=== PATIENT | male | born 1970 | race Caucasian/White ===

== ENCOUNTER 2021-08-21 19:18 | Emergency (ER) | payer OTHER, SELFPAY ==
[2021-08-21 19:24] VITALS: BP 149/92; PULSE 86; RESP 18; TEMP 36.5; O2SAT 98
--- NOTE | 2021-08-21 20:53 | ED.GENADUL_ITS ---
Discharge Plan Disposition Patient Disposition: HOME Condition: Improving Discharge Details Clinical Impression: Eye irritation Primary Care Provider: Alma Rosa,Local ED Provider: Jass Chen Home Meds and New Rx's Prescriptions: No Action No Known Home Meds 0RF Discharge Instructions Additional Instructions: Erythromycin eye ointment as directed. Warm compresses every 2 hours for 20 minutes. Please watch for new or worsening symptoms and return to the ER for any concerns. Otherwise follow-up with your primary care provider if symptoms are persisting over the next 3-5 days. Stand Alone Forms: Work Release Discharge Data Discharge Date/Time-TO BE ENTERED AT DEPARTURE: 08/21/21 21:34 Medical Decision Making 51-year-old gentleman presents believing he got dust or debris in his left eye at work a few hours ago, requires a work note to return to work. He states that happened suddenly. Denies any real pain, visual changes, he does appear to have a small stye to his upper medial left lid. Fluorescein staining reveals no foreign body. Given this happened while he was working and he felt something go into his eye, certainly the stye it may be an incidental finding. The eye was flushed with saline and then again using fluorescein to examine, no uptake. Will treat with erythromycin eye ointment, warm compresses, and outpatient follow-up. Patient comfortable this plan and has no additional questions or concerns. Denies any visual changes or discharge from his eye Standard discharge and return precautions were provided. Patient understands, is agreeable to this plan, and has no additional questions or concerns upon discharge. This documentation was generated using [employer] dictation system, please disregard any oddities of phrase or misspellings. HPI General Mode of arrival: ambulatory . Date/Time Provider Initiated Documentation: 08/21/21 19:27 . Limitations to Documentation: no limitations . Information obtained by: patient . History of Present Illness 51 year old M presents to the emergency department with the chief complaint of l eye pain, described as mild, with intensity rated at 3. Quality is described as other (Irritation), and is localized to the eyes and left. Patient reports no radiation. Patient started experiencing this hour(s) (4) and it has been constant. improves with No relieving factors improve symptom(s), No exacerbating factors reported . Patient notes no other symptoms.. Patient did receive the following treatments prior to arrival, other (Flushes his eye) Related Data Home Medications Medication Instructions Recorded Confirmed Unknown [No Known Home Meds] 08/21/21 08/21/21 Allergies Allergy/AdvReac Type Severity Reaction Status Date / Time No Known Allergies Allergy Unverified 08/21/21 20:34 General Stated Complaint: EyeProblem HARIS: 4 Review of Systems Constitutional Constitutional: Denies fever(s) and Denies headache(s) Eyes Eyes: Denies change in vision, Denies eye discharge, Reports irritation, Denies requires corrective lenses and Denies photophobia ENT Ears, Nose, Mouth, and Throat: Denies headache(s) and Denies neck pain Musculoskeletal Musculoskeletal: Denies neck pain Neurologic Neurologic: Denies headache(s) PFSH All Active Problems Eye irritation (Acute) Social History Smoking/Tobacco Use Status: Current every day Tobacco Type: cigarettes Smoking risk assessment performed?: Yes Alcohol Intake: never Drug use: Never Substance use type: does not use Do you feel safe at home: Yes Do you feel safe in your relationship?: Yes Exam Const General: cooperative, healthy appearing, comfortable and no acute distress Orientation: alert and awake HENCT Head: normal to inspection, normocephalic and atraumatic Face and sinus: normal facial exam Mouth: moist mucous membranes Eyes Alignment and Position: alignment normal Periorbital: periorbital findings normal Eyelids: eyelid abnormality left upper eyelid inflamed cyst external lid Conjunctivae: conjunctival abnormality left conjunctival injection Sclera: sclerae normal Cornea: corneas normal and fluorescein used Pupils: PERRL EOM: EOM intact bilaterally Direct ophthalmoscopy: normal light reflex Neck Neck: normal visual inspection, full ROM, trachea midline and supple Resp Effort & Inspection: normal respiratory effort and able to speak in complete sentences Cardio Rate: regular rate Rhythm: regular rhythm Skin General skin exam: no rashes or lesions noted Neuro General: patient alert, patient awake, moves all extremities and no focal motor deficits Sensory Exam: no sensory deficits noted Psych Appearance: grossly normal Mental Status: mental status grossly normal Course Vital Signs Vital signs: Vital Signs Temperature 36.5 C 08/21/21 19:24 Pulse 86 08/21/21 19:24 Respiratory Rate 18 08/21/21 19:24 Blood Pressure 149/92 H 08/21/21 19:24 Pulse Oximetry 98 08/21/21 19:24 Temperature 36.5 C 08/21/21 19:24 Temperature Source Tympanic 08/21/21 19:24 Pulse 86 08/21/21 19:24 Respiratory Rate 18 08/21/21 19:24 Respiratory Effort 08/21/21 19:27 Blood Pressure 149/92 H 08/21/21 19:24 Blood Pressure Position Supine 08/21/21 19:24 Pulse Oximetry 98 08/21/21 19:24 Oxygen Delivery Method Room Air 08/21/21 19:24 Oxygen Flow Rate 0 08/21/21 19:24 Pain Level 5 08/21/21 19:24
[2021-08-21] MEDS: Fluorescein STRIPS 100/BOX 1 MG (21:12)
[2021-08-21] MEDS: Tetracaine 0.5% 4 ML BTL (21:12)
[2021-08-21] MEDS: Erythromycin Ophth Oint 3.5 GM TUBE OD (21:34)
== END 2021-08-21 21:34 | disposition home or self-care (01) ==
LOC: ER 21:39
PROVIDERS: Emergency Provider Physician Assistant
DX: H53.142 Visual discomfort, left eye (principal); T15.82XA Foreign body in other and multiple parts of external eye, left eye, initial encounter; X58.XXXA Exposure to other specified factors, initial encounter; Y99.0 Civilian activity done for income or pay
CPT/HCPCS: 99283

== ENCOUNTER 2021-10-21 00:31 | Emergency (ER) | payer OTHER, SELFPAY ==
--- NOTE | 2021-10-21 00:30 | DI.CT_ITS ---
Exam(s) CT ABDOMEN PELVIS WO EXAM: CT ABDOMEN PELVIS WO CLINICAL HISTORY: llq pain. TECHNIQUE: Imaging Protocol: Axial computed tomography images with coronal and sagittal reformatted images were created and reviewed. Oral: no COMPARISON: No exams were available for comparison FINDINGS: ABDOMEN: Lung Bases: Normal where visualized. Liver: Normal density. No measurable mass. Gallbladder and biliary tract: No radiodense calculus or dilation. Pancreas: Normal density, no abnormal calcifications or inflammatory process. Spleen: Normal. Kidneys: Normal size, contour and axis. Left kidney shows mild hydronephrosis secondary to a 7 ziggy meter stone in the proximal 3rd of the ureter. There is is mild perinephric stranding. Punctate non obstructing stone lower pole right kidney. Cyst upper pole right kidney. Adrenal glands: No masses seen. Lymph nodes: Within normal limits. Abdominal Aorta: Abdominal portion non-dilated. PELVIS: Bladder: Nearly empty, not well evaluated. Bowel: Sigmoid diverticulosis. No obstruction or bowel wall thickening. Peritoneal cavity: No ascites, collection or mesenteric inflammatory response. Reproductive organs: Within normal limits. Bones: Unremarkable for age. IMPRESSION: Mild left hydronephrosis secondary to a 7 millimeter stone in the upper left ureter. RADIATION DOSE DELIVERED: 973.14mGy.cm Total DLP DATA REPOSITORY: All CT scans at this facility are submitted to the National Radiology Data Registry (NRDR) Dose Index Registry (DIR) with the [employer] (ACR). RADIATION OPTIMIZATION: All CT scans at this facility use at least one of these dose optimization te chniques: automated exposure control; mA and/or kV adjustment per patient size (includes targeted exa ms where dose is matched to clinical indication); or iterative reconstruction.
[2021-10-21 00:37] VITALS: BP 159/133; PULSE 91; RESP 98; TEMP 37.1
--- NOTE | 2021-10-21 00:48 | ED.GENADUL_ITS ---
Discharge Plan Disposition Patient Disposition: HOME Condition: Stable Discharge Details Clinical Impression: Kidney stone Primary Care Provider: Alma RosaLocal ED Provider: Regino Dong Home Meds and New Rx's Prescriptions: New ondansetron 4 mg tablet,disintegrating 4 mg PO Q8H PRN (Reason: nausea and vomiting) Qty: 30 0RF tamsulosin [Flomax] 0.4 mg capsule 0.4 mg PO DAILY Qty: 14 0RF Rx Instructions: take once daily for 14 days of until you pass kidney stone oxycodone 5 mg tablet 5 mg PO Q6H PRNQty: 9 0RF Discharge Instructions Instructions: Kidney Stones (ED) Additional Instructions: you should be contacted with an appointment for urology you can take 1000mg tylenol and 600mg ibuprofen every 6 hours for pain. Do not exceed 3000mg of tylenol in a 24 hour period. If you need additional pain relief take 1 oxycodone, do not drink alcohol or drive if you take this medicine if you develop severe worsening pain, fevers or persistent vomiting return to the emergency department Referrals: Jude Duran MD [ [facility] STAFF PHYSICIAN] - Medical Decision Making 51 yo male who denies chronic medical problems though states he doesn't go to a pcp routinely comes in with cc of left lower abdomen pain and n/v since 0300 yesterday morning. He denies having pain like this in the past, did have his appendix taken out years ago per patient. He denies chest pain, dyspnea, fevers, chills. He has no testicle pain or swelling. He denies alcohol or drug use. He has tenderness on exam in the llq no distention or tenderness elsewhere. Suspect diverticulitis based on location, will obtain labs including cbc, cmp, lipase and obtain ct to further evaluate. labs show wbc of 17 which could be reactive from the n/v and pain. Still waiting for vrad report but on my read has proximal left kidney stone. Pain is much better and he is now comfortable. Ua shows no evidence of infection but does have hematuria. Will monitor while vrad report is still pending ct confirms kidney stone, 5mm in mid left ureter. Pt resting in bed without pain and feels comfortable with d/c and f/u with urology. Placed on f/u list to see urology angelina. Return precautions given Differential Diagnosis Differential Diagnosis: diverticulitis, sbo, colitis Imaging Data Radiologic Study: Attestation: I personally reviewed and interpreted this imaging study as follows: Imaging: CT Scan Radiologist's impression: IMPRESSION: 1. There is a 5 mm stone within the mid left ureter, with proximal mild left-sided hydronephrosis and hydroureter. 2. Nonobstructive nephrolithiasis on the right. Lab Data Lab results reviewed: Yes I reviewed the patient's lab results. HPI General Mode of arrival: ambulatory . Date/Time Provider Initiated Documentation: 10/21/21 00:34 . Limitations to Documentation: no limitations . Information obtained by: patient . History of Present Illness 51 year old M presents to the emergency department with the chief complaint of abdominal pain, described as moderate, Quality is described as stabbing, and is localized to the abdomen. Patient reports no radiation. Patient started experiencing this day(s) (1) and it has been constant. No relieving factors improve symptom(s), No exacerbating factors reported . Patient notes no other symptoms.. Patient did receive the following treatments prior to arrival, none Related Data Home Medications Medication Instructions Recorded Confirmed ondansetron 4 mg disintegrating 4 mg PO Q8H PRN nausea and 10/21/21 tablet vomiting #30 tabs oxycodone 5 mg tablet 5 mg PO Q6H PRN #9 tabs 10/21/21 tamsulosin 0.4 mg capsule (Flomax) 0.4 mg PO DAILY #14 caps 10/21/21 Previous Rx's Medication Instructions Recorded ondansetron 4 mg disintegrating 4 mg PO Q8H PRN nausea and 10/21/21 tablet vomiting #30 tabs oxycodone 5 mg tablet 5 mg PO Q6H PRN #9 tabs 10/21/21 tamsulosin 0.4 mg capsule (Flomax) 0.4 mg PO DAILY #14 caps 10/21/21 Allergies Allergy/AdvReac Type Severity Reaction Status Date / Time No Known Allergies Allergy Unverified 10/21/21 00:42 General Stated Complaint: Abd Prob HARIS: 3 Review of Systems All systems reviewed & are unremarkable except as noted in HPI and below Constitutional Constitutional: Denies chills, Denies fever(s) and Denies weakness Eyes Eyes: Denies loss of vision Cardiovascular Cardiovascular: Denies chest pain and Denies dyspnea Respiratory Respiratory: Denies cough and Denies dyspnea Genitourinary Genitourinary: Denies dysuria Neurologic Neurologic: Denies loss of vision and Denies weakness PFSH All Active Problems (Updated 10/21/21 @ 02:45 by Regino Dong MD) Kidney stone (Chronic) Social History Smoking/Tobacco Use Status: Current every day Tobacco Type: cigarettes Smoking risk assessment performed?: Yes Alcohol Intake: never Drug use: Never Substance use type: does not use Do you feel safe at home: Yes Do you feel safe in your relationship?: Yes Exam Const General: no acute distress Orientation: alert HENMT Head: normal to inspection Ears: external ears normal General nose exam: external nose normal Mouth: moist mucous membranes Eyes General: appearance normal, both eyes and all related structures Neck Neck: normal visual inspection Resp Effort & Inspection: normal respiratory effort and able to speak in complete sentences Cardio Rate: regular rate GI Palpation: soft and tender Skin General skin exam: no rashes or lesions noted Neuro General: patient alert and patient oriented x3 Extrem General: normal to inspection Psych Mental Status: mental status grossly normal Course Vital Signs Vital signs: Vital Signs Temperature 37.1 C 10/21/21 00:37 Pulse 91 H 10/21/21 00:37 Respiratory Rate 98 H 10/21/21 00:37 Blood Pressure 159/133 H 10/21/21 00:37 Temperature 37.1 C 10/21/21 00:37 Temperature Source Temporal Artery Scan 10/21/21 00:37 Pulse 91 H 10/21/21 00:37 Respiratory Rate 98 H 10/21/21 00:37 Respiratory Effort Non-Labored 10/21/21 00:40 Blood Pressure 159/133 H 10/21/21 00:37 Blood Pressure Position Supine 10/21/21 00:37 Oxygen Delivery Method Room Air 10/21/21 00:37 Oxygen Flow Rate 0 10/21/21 00:37 Pain Level 10 10/21/21 00:37
[2021-10-21 00:49] LABS: Abs Immature Grans 0.07 10^3/uL (0.0-0.06); Absolute Eosinophil Count 0.07 10^3/uL (0.0-0.7); Absolute Monocyte Count 1.45 10^3/uL (0.1-0.8); Basophils % 0.3; Eosinophils % 0.4; HCT 48.7 % (40.0-50.0); HGB 16.2 g/dL (13.5-17.5); Immature Grans % 0.4; Lymphocytes % 12.2; MCH 30.5 pg (27.0-33.0); MCHC 33.3 % (32.0-36.0); MCV 92 fL (80-95); MPV 11.4 fL (8.0-11.0); Monocytes % 8.3; Neutrophils % 78.4; Platelet Count 256 10^3/uL (130-400); RBC 5.31 10^6/uL (4.36-5.78); RDW 13.8 % (11.8-14.1); RDW-SD 46.5 fL; WBC 17.41 10^3/uL (4.4-10.8)
[2021-10-21 00:50] LABS: Absolute Basophil Count 0.05 10^3/uL (0.0-0.2); Absolute Lymphocyte Count 2.12 10^3/uL (1.2-3.4); Absolute Neutrophil Count 13.65 10^3/uL (1.2-6.7)
[2021-10-21] MEDS: Normal Saline 1,000 ML 1000 ML IV (00:53)
[2021-10-21] MEDS: Ondansetron 4 MG/2 ML VIAL IVP (00:53)
[2021-10-21] MEDS: Ketorolac 15 MG/ML VIAL IVP (00:53)
[2021-10-21 01:02] LABS: ALT 27 U/L (16-63); AST 11 U/L (15-37); Albumin 4.2 g/dL (3.4-5.0); Alkaline Phosphatase 70 U/L (46-116); Anion Gap 13.8 mmol/L (3-11); BUN 21 mg/dL (7-18); Bilirubin, Total 0.3 mg/dL (0.2-1.0); CO2 20.2 mmol/L (21.0-32.0); CREATININE 1.6 mg/dL (0.70-1.30); Chloride 104 mmol/L (98-107); Estimated GFR 45.62 (mL/min/1.73m2); Glucose 108 mg/dL (74-106); Magnesium 2.1 mg/dL (1.8-2.4); Potassium 4.3 mmol/L (3.5-5.1); Sodium 138 mmol/L (136-145)
[2021-10-21 01:03] LABS: Bilirubin, Direct 0.1 mg/dL (0.0-0.2); Bilirubin, Total 0.3 mg/dL (0.2-1.0); Lipase 105 U/L (73-393)
[2021-10-21 01:22] LABS: Bilirubin Moderate (Negative); Blood Large (Negative); Clarity Clear (Clear); Glucose Negative (Negative); Ketones 40 mg/dL (Negative); Leukocyte Esterase Negative (Negative); Nitrite Negative (Negative); Specific Gravity >= 1.030 (1.005-1.025); Urobilinogen 0.2 EU/dL (Up TO 0.2); pH 5.5 (5-8)
[2021-10-21 01:25] LABS: Bacteria Few HPF (Negative); C & S Indicated? No; Casts Negative LPF (Negative); Crystals Few Calcium Oxalate HPF (Negative); Epithelial Cells Rare HPF (Negative); Mucus Negative (Negative); RBC >50 HPF (0-2); WBC Negative HPF (0-5)
[2021-10-21] MEDS: HYDROmorphone 2 MG/ML VIAL 1 MG IVP (01:36)
--- NOTE | 2021-10-21 01:58 | NUR.NOTE ---
Needs a PCP, put on care manger's list for f/u.Nursing Note:
--- NOTE | 2021-10-21 02:38 | DI.VRAD_ITS ---
PROCEDURE INFORMATION: Exam: CT Abdomen And Pelvis Without Contrast Exam date and time: 10/21/2021 1:17 AM Age: 51 years old Clinical indication: Abdominal pain; Localized; Left lower quadrant (llq); Prior surgery; Surgery date: 6+ months; Surgery type: Appendectomy; Additional info: Llq pain TECHNIQUE: Imaging protocol: Computed tomography of the abdomen and pelvis without contrast. Radiation optimization: All CT scans at this facility use at least one of these dose optimization techniques: automated exposure control; mA and/or kV adjustment per patient size (includes targeted exams where dose is matched to clinical indication); or iterative reconstruction. COMPARISON: No relevant prior studies available. FINDINGS: Liver: Normal. No mass. Gallbladder and bile ducts: Normal. No calcified stones. No ductal dilation. Pancreas: Normal. No ductal dilation. Spleen: Normal. No splenomegaly. Adrenal glands: Normal. No mass. Kidneys and ureters: There is a 5 mm stone within the mid left ureter, with proximal mild left-sided hydronephrosis and hydroureter. A right simple renal cyst is noted emanating from the superior pole, measuring 6.0 cm. Nonobstructive nephrolithiasis on the right. Stomach and bowel: Unremarkable. No obstruction. No mucosal thickening. Appendix: The appendix is surgically absent. Intraperitoneal space: Unremarkable. No free air. No significant fluid collection. Vasculature: Unremarkable. No abdominal aortic aneurysm. Lymph nodes: Unremarkable. No enlarged lymph nodes. Urinary bladder: Unremarkable as visualized. Reproductive: Unremarkable as visualized. Bones/joints: Unremarkable. No acute fracture. Soft tissues: Unremarkable. IMPRESSION: 1. There is a 5 mm stone within the mid left ureter, with proximal mild left-sided hydronephrosis and hydroureter. 2. Nonobstructive nephrolithiasis on the right. Dictated and Authenticated by: Osmar Kraus MD. Ordering:ADELAIDA Lacy MD
[2021-10-21] MEDS: Ondansetron O.D.T. 4 MG TABEF, 3 TABS/BTL PO (02:56)
--- NOTE | 2021-10-21 02:58 | NUR.NOTE ---
Nursing Note: Per provider, okay to drive.
== END 2021-10-21 02:58 | disposition home or self-care (01) ==
PROVIDERS: Emergency Provider Emergency Medicine
DX: N20.0 Calculus of kidney (principal)
CPT/HCPCS: 80053; 83690; 96361; 96374; 96375; 99284; 74176; 81003; 81015; 82247; 82248; 83735; 85025; J1885; J2405

== ENCOUNTER 2021-10-23 20:29 | Observation (INO) | payer OTHER, SELFPAY ==
[2021-10-23 20:43] VITALS: BP 145/100; PULSE 134; RESP 20; TEMP 36.8; O2SAT 94
--- NOTE | 2021-10-23 20:45 | DI.CT_ITS ---
Exam(s) CT RENAL COLIC WO EXAM: CT RENAL COLIC WO CLINICAL HISTORY: kidney stone. TECHNIQUE: Imaging Protocol: Axial computed tomography images with coronal and sagittal reformatted images were created and reviewed CONTRAST MATERIAL: Intravenous: none Oral: None COMPARISON: CT CT ABDOMEN PELVIS WO from 10/21/2021 FINDINGS: VISUALIZED LUNG BASES: No nodules nor pleural effusions evident. ABDOMEN: There is no ascites. LIVER: There are no obvious focal hepatic lesions evident of this noninfused study. GALLBLADDER/BILIARY: No obvious gallbladder pathology. CBD is not dilated. PANCREAS: No evidence of pancreatic mass nor dilatation of the pancreatic duct. SPLEEN: Spleen is not enlarged. No obvious intrasplenic lesions. ADRENALS: There are no significant adrenal masses. KIDNEYS:On the left side the previously described 7 millimeter calculus has migrated caudally to the left ureterovesical junction but has not passed into the urinary bladder there is increased hydroneph rosis above this level and hydroureter and ipsilateral perinephric stranding. No other radiopaque ca lculi evident kidney. In the opposite-left kidney is again noted a large cyst in the superior pole m easuring 5.74.5 cm. There is a 3 millimeter calculus in the lower pole calyx of the right kidney, no nobstructive. This is unchanged in size and position. No hydronephrosis on the right side. No hemalatha d renal masses.. ABDOMINAL AORTA: Abdominal aorta is not enlarged. LYMPH NODES: There is no retroperitoneal nor paraaortic adenopathy. ABDOMINAL WALL: No evidence of significant anterior abdominal wall nor inguinal hernia. GI: There is no evidence of bowel obstruction, free air, nor abscess. PELVIS: LYMPH NODES: There is no intrapelvic nor inguinal adenopathy. GI: Appendix is surgically absent.Sigmoid redundant. There are diverticuli in the descending colon a nd sigmoid but no evidence of acute diverticulitis. URINARY BLADDER: Not distended. No calculi therein. REPRODUCTIVE: Prostate seminal vesicles unremarkable OSSEOUS: In the right iliac bone there is a nonexpansile lucent bone lesion which measures 9 x 7 mill imeters, unchanged from the prior study. This does not exhibit a peripherally sclerotic border. No other similar hypodense bone lesions evident. Sacroiliac joints appear unremarkable. IMPRESSION: 1. Compared to 10/21/2021 the 7 millimeter calculus in the left ureter has migrated caudally to the l eft ureterovesical junction. There is increase in perinephric and periureteral stranding and which i s probably related to the passage of a calculus but correlation with any clinical signs of urinary tr act infection is recommended. 2. Increased urinary content density in the nondistended urinary bladder, probably related to blood t herein, this related to stone passage. 3. Prominent cyst again noted in the opposite-right kidney as well as a 3 millimeter nonobstructive c alculus in the lower pole calyx of the right kidney again noted. Incidentally noted is 9 x 7 millimeter lucent area in the right iliac bone, not associated with scler otic border. This may be a bone lesion versus focal osteoporosis. No other similar osseous lesions evident the field of view of this study. If clinically indicated this can be further studied with MR I of this area or whole body nuclear bone scan This study was 1st read by [facility] RADIATION DOSE DELIVERED: 1,312.57mGy.cm Total DLP DATA REPOSITORY: All CT scans at this facility are submitted to the National Radiology Data Registry (NRDR) Dose Index Registry (DIR) with the [employer] (ACR). RADIATION OPTIMIZATION: All CT scans at this facility use at least one of these dose optimization te chniques: automated exposure control; mA and/or kV adjustment per patient size (includes targeted exa ms where dose is matched to clinical indication); or iterative reconstruction.
--- NOTE | 2021-10-23 20:53 | ED.GENADUL_ITS ---
Discharge Plan Disposition Patient Disposition: [facility] INPATIENT Condition: Stable Discharge Details Chief Complaint: FlankPain Clinical Impression: Kidney stone Primary Care Provider: Alma RosaLocal ED Provider: Regino Dong Home Meds and New Rx's Prescriptions: No Action oxycodone 5 mg tablet 5 mg PO Q6H PRN (Reason: Pain, Severe) ondansetron 4 mg tablet,disintegrating 4 mg PO Q8H PRN (Reason: nausea and vomiting) Qty: 30 0RF tamsulosin [Flomax] 0.4 mg capsule 0.4 mg PO DAILY Qty: 14 0RF Rx Instructions: take once daily for 14 days of until you pass kidney stone Medical Decision Making 51 yo male with no chronic medical problems diagnosed with 7mm left kidney stone 2 days ago comes in with increased pain despite oxycodone at home. He denies fevers, chills, chest pain, dysuria but has noted hematuria. He states the pain initially was in the flank and upper abdomen/back and now is in the lower abdomen. He has no testicle swelling or tenderness, is tender in the llq, no distention or guarding of the abdomen. Suspect continued kidney stone pain, will obtain cbc, cmp, ua and also repeat ct to determine if kidney stone has progressed at all since last scan. No fevers or infectious symptoms to suggest sepsis, will obtain ua to evaluate for possible infected stone CT on my read shows the stone is at the uvj, he is more comfortable but still has some pain and doesn't feel comfortable going home. Given he failed outpatient management will discuss with hospitalist about admission for pain control Differential Diagnosis Differential Diagnosis: kidney stone, uti Medical Records Medical records reviewed: Yes I reviewed the patient's medical records. Imaging Data Radiologic Study: Attestation: I personally reviewed and interpreted this imaging study as follows: Imaging: CT Scan My impression: left ureter stone at the uvj Lab Data Lab results reviewed: Yes I reviewed the patient's lab results. HPI General Mode of arrival: ambulatory . Date/Time Provider Initiated Documentation: 10/23/21 20:29 . Limitations to Documentation: no limitations . Information obtained by: patient . History of Present Illness 51 year old M presents to the emergency department with the chief complaint of lower abdomen pain, described as severe, Quality is described as sharp, and is localized to the abdomen. Patient reports radiation to back. Patient started experiencing this day(s) (2) and it has been constant. No relieving factors improve symptom(s), No exacerbating factors reported . Patient did receive the following treatments prior to arrival, none Related Data Home Medications Medication Instructions Recorded Confirmed ondansetron 4 mg disintegrating 4 mg PO Q8H PRN nausea and 10/21/21 10/23/21 tablet vomiting #30 tabs tamsulosin 0.4 mg capsule (Flomax) 0.4 mg PO DAILY #14 caps 10/21/21 10/23/21 oxycodone 5 mg tablet 5 mg PO Q6H PRN Pain, Severe 10/23/21 10/23/21 Previous Rx's Medication Instructions Recorded ondansetron 4 mg disintegrating 4 mg PO Q8H PRN nausea and 10/21/21 tablet vomiting #30 tabs tamsulosin 0.4 mg capsule (Flomax) 0.4 mg PO DAILY #14 caps 10/21/21 Allergies Allergy/AdvReac Type Severity Reaction Status Date / Time No Known Allergies Allergy Unverified 10/23/21 21:28 General Stated Complaint: FlankPain HARIS: 3 Review of Systems All systems reviewed & are unremarkable except as noted in HPI and below Constitutional Constitutional: Denies chills, Denies fever(s) and Denies weakness Cardiovascular Cardiovascular: Denies chest pain and Denies dyspnea Respiratory Respiratory: Denies cough and Denies dyspnea Gastrointestinal Gastrointestinal: Denies vomiting Genitourinary Genitourinary: Denies dysuria Integumentary/Breasts Skin/Breast: Denies rash Neurologic Neurologic: Denies weakness PFSH All Active Problems (Updated 10/23/21 @ 21:40 by Regino Dong MD) Kidney stone (Chronic) Social History Smoking/Tobacco Use Status: Current every day Tobacco Type: cigarettes Smoking risk assessment performed?: Yes Alcohol Intake: never Drug use: Never Substance use type: does not use Do you feel safe at home: Yes Do you feel safe in your relationship?: Yes Exam Const General: no acute distress Orientation: alert HENCA Head: normal to inspection Ears: external ears normal General nose exam: external nose normal Mouth: moist mucous membranes Eyes General: appearance normal, both eyes and all related structures Neck Neck: normal visual inspection Resp Effort & Inspection: normal respiratory effort and able to speak in complete sentences Cardio Rate: tachycardic GI Palpation: tender Skin General skin exam: no rashes or lesions noted Neuro General: patient alert and patient oriented x3 Extrem General: normal to inspection Psych Mental Status: mental status grossly normal Course Vital Signs Vital signs: Vital Signs Temperature 36.8 C 10/23/21 20:43 Pulse 134 H 10/23/21 20:43 Respiratory Rate 20 10/23/21 20:43 Blood Pressure 145/100 H 10/23/21 20:43 Pulse Oximetry 94 10/23/21 20:43 Temperature 36.8 C 10/23/21 20:43 Temperature Source Oral 10/23/21 20:43 Pulse 134 H 10/23/21 20:43 Respiratory Rate 20 10/23/21 20:43 Blood Pressure 145/100 H 10/23/21 20:43 Pulse Oximetry 94 10/23/21 20:43 Oxygen Delivery Method Room Air 10/23/21 20:43 Oxygen Flow Rate 0 10/23/21 20:43 Pain Level 10 10/23/21 20:43
[2021-10-23 21:18] LABS: Source Nasal/Nares
[2021-10-23 21:20] LABS: Abs Immature Grans 0.06 10^3/uL (0.0-0.06); Absolute Basophil Count 0.04 10^3/uL (0.0-0.2); Absolute Eosinophil Count 0.07 10^3/uL (0.0-0.7); Absolute Lymphocyte Count 2.44 10^3/uL (1.2-3.4); Absolute Monocyte Count 1.47 10^3/uL (0.1-0.8); Absolute Neutrophil Count 10.77 10^3/uL (1.2-6.7); Basophils % 0.3; Eosinophils % 0.5; HGB 15.1 g/dL (13.5-17.5); Immature Grans % 0.4; Lymphocytes % 16.4; MCH 30.5 pg (27.0-33.0); MCHC 32.8 % (32.0-36.0); MCV 93 fL (80-95); MPV 11.6 fL (8.0-11.0); Monocytes % 9.9; Neutrophils % 72.5; Platelet Count 221 10^3/uL (130-400); RBC 4.95 10^6/uL (4.36-5.78); RDW 14.3 % (11.8-14.1); RDW-SD 48.9 fL; WBC 14.86 10^3/uL (4.4-10.8)
[2021-10-23] MEDS: Ondansetron 4 MG/2 ML VIAL IVP (21:20)
[2021-10-23] MEDS: Normal Saline 1,000 ML 1000 ML IV (21:21)
[2021-10-23 21:23] VITALS: TEMP 36.9
[2021-10-23] MEDS: HYDROmorphone 2 MG/ML VIAL 1 MG IVP (21:23)
[2021-10-23] MEDS: Ketorolac 15 MG/ML VIAL IVP (21:23)
[2021-10-23 21:32] VITALS: PULSE 109
[2021-10-23 21:34] LABS: ALT 21 U/L (16-63); AST 14 U/L (15-37); Albumin 3.3 g/dL (3.4-5.0); Alkaline Phosphatase 56 U/L (46-116); Anion Gap 9.8 mmol/L (3-11); BUN 19 mg/dL (7-18); Bilirubin, Total 0.4 mg/dL (0.2-1.0); CO2 24.2 mmol/L (21.0-32.0); CREATININE 1.5 mg/dL (0.70-1.30); Calcium 8.5 mg/dL (8.5-10.1); Chloride 110 mmol/L (98-107); Estimated GFR 49.15 (mL/min/1.73m2); Glucose 115 mg/dL (74-106); Lipase 74 U/L (73-393); Magnesium 1.9 mg/dL (1.8-2.4); Potassium 4.4 mmol/L (3.5-5.1); Sodium 144 mmol/L (136-145); Total Protein 6.8 g/dL (6.4-8.2)
[2021-10-23 22:03] LABS: Bilirubin Negative (Negative); Blood Large (Negative); Clarity Clear (Clear); Glucose Negative (Negative); Ketones Trace mg/dL (Negative); Leukocyte Esterase Negative (Negative); Nitrite Negative (Negative); Specific Gravity >= 1.030 (1.005-1.025); pH 6.5 (5-8)
--- NOTE | 2021-10-23 22:04 | W.PM.HP.N ---
Date of service: 10/23/21 Time of Service: 22:05 Assessment and Plan Assessment and plan (1) Kidney stone: Status: Chronic Assessment and plan: 1.Kidney stone. By size unlikely to pass. Will treat with IVF, and prn analgesics and antiemetics and consult urology. Will also give single dose Flomax. No signs infection at this point but u/a notably still pending. Will have NPO after MN for probable OR in AM 2. Tobacco: prn nicotine patch Full Code History of Present Illness History of Present Illness Chief Complaint: abd pain Narrative: 51 male seen 2 days [employer] with 5mm left kidney stone (mid-ureter), presenting with left flnak pain. Home on prn Oxycodone. Pain has since migrated to testicle and Oyccodone is not holding his pain. In ER w/u of note for absence of fever, white count [address] demonstrating stone at left UVJ with left hydro. Gievn Dilaudid IV with good effect. I was asked to evaluate for admission. No prior stones. Denies fever, though did have single chill. No dysuria or hematuria. Review of Systems Narrative: per HPI PFSH All Active Problems Kidney stone (Chronic) Social History Smoking/Tobacco Use Status: Current every day Tobacco Type: cigarettes Smoking risk assessment performed?: Yes Alcohol Intake: never Drug use: Never Substance use type: does not use Do you feel safe at home: Yes Do you feel safe in your relationship?: Yes Meds Allergies and Home Medications Allergies Allergy/AdvReac Type Severity Reaction Status Date / Time No Known Allergies Allergy Unverified 10/23/21 21:28 Home Medications Medication Instructions Recorded Confirmed Type ondansetron 4 mg disintegrating 4 mg PO Q8H PRN nausea and 10/21/21 10/23/21 Rx tablet vomiting #30 tabs tamsulosin 0.4 mg capsule (Flomax) 0.4 mg PO DAILY #14 caps 10/21/21 10/23/21 Rx oxycodone 5 mg tablet 5 mg PO Q6H PRN Pain, Severe 10/23/21 10/23/21 History Exam Narrative Exam Narrative: 147/95, 85, 36.7, 18, 99% RA. HEENT atraumatic; neck supple; lungs clear; heart RRR; negative CVAT; abdomen soft and NT; no testicular swelling or redness; extremities w/o edema; neuro Ox3, lucid, moves all 4s Results Labs Result diagrams: 10/23/21 21:05 10/23/21 21:05 Labs: Laboratory Results - last 24 hr 10/23/21 10/23/21 10/23/21 21:05 21:05 21:05 WBC 14.86 H RBC 4.95 Hgb 15.1 Hct 46.0 MCV 93 MCH 30.5 MCHC 32.8 RDW 14.3 H Plt Count 221 MPV 11.6 H Immature Gran % 0.4 Neutrophils % 72.5 Lymphocytes % 16.4 Monocytes % 9.9 Eosinophils % 0.5 Basophils % 0.3 Nucleated RBC % 0.0 Absolute Neutrophils 10.77 H Absolute Lymphocytes 2.44 Absolute Monocytes 1.47 H Absolute Eosinophils 0.07 Absolute Basophils 0.04 Sodium 144 Potassium 4.4 Chloride 110 H Carbon Dioxide 24.2 Anion Gap 9.8 BUN 19 H Creatinine 1.5 H Estimated GFR/1.73 m2 49.15 Glucose 115 H Calcium 8.5 Magnesium 1.9 Total Bilirubin 0.4 AST 14 L ALT 21 Alkaline Phosphatase 56 Total Protein 6.8 Albumin 3.3 L Lipase 74 COVID-19 Source Nasal/Nares Last Vital Signs Temp 36.9 C 10/23/21 21:23 Pulse 109 H 10/23/21 21:32 Resp 20 10/23/21 20:43 BP 145/100 H 10/23/21 20:43 Pulse Ox 94 10/23/21 20:43
[2021-10-23 22:05] VITALS: BP 147/95; PULSE 85; RESP 18; TEMP 36.7; O2SAT 99
[2021-10-23 22:14] LABS: COVID-19 PCR Negative (Negative)
[2021-10-23 22:22] LABS: Bacteria Negative HPF (Negative); C & S Indicated? Yes; Casts Negative LPF (Negative); Crystals Negative HPF (Negative); Epithelial Cells Negative HPF (Negative); Mucus Negative (Negative); Other Cells Negative (Negative); RBC 20-50 HPF (0-2)
--- NOTE | 2021-10-23 22:34 | DI.VRAD_ITS ---
PROCEDURE INFORMATION: Exam: CT Abdomen And Pelvis Without Contrast Exam date and time: 10/23/2021 9:25 PM Age: 51 years old Clinical indication: Other: Lower groin, flank pain; Patient HX: Known kidney stone on left, increased pain radiating into testicle per patient, increased blood in urine TECHNIQUE: Imaging protocol: Computed tomography of the abdomen and pelvis without contrast. Radiation optimization: All CT scans at this facility use at least one of these dose optimization techniques: automated exposure control; mA and/or kV adjustment per patient size (includes targeted exams where dose is matched to clinical indication); or iterative reconstruction. COMPARISON: CT ABDOMEN PELVIS WO 10/21/2021 1:17 AM FINDINGS: Liver: The superior aspect of the liver is incompletely imaged. The imaged portions are homogeneous. Gallbladder and bile ducts: Normal. No calcified stones. No ductal dilation. Pancreas: Normal. No ductal dilation. Spleen: Normal. No splenomegaly. Adrenal glands: Normal. No mass. Kidneys and ureters: Cystic structure in the right kidney again seen. Left-sided hydronephrosis and hydroureter has increased. There is a 6 mm calculus at the left UVJ. This has descended when compared to prior examination. There has been an interval increase in perinephric and periureteral stranding which may be reactive but should be correlated with any concern for infection. There is a nonobstructive right renal calculus. Stomach and bowel: No obstruction. Sigmoid diverticulosis is again seen. Appendix: Not clearly seen. Intraperitoneal space: No free air. Vasculature: Vascular calcifications. Lymph nodes: Unremarkable. No enlarged lymph nodes. Urinary bladder: Portions of the internal contents of the urinary bladder measure greater than water density. Components of blood or infection are possible. Reproductive: Vasectomy clips. Bones/joints: Scattered sclerotic foci in the bone. In the absence of known malignancy, these most likely represent bone islands. Skeletal degenerative changes. No acute fracture.. No acute fracture. Soft tissues: Unremarkable. IMPRESSION: 1. Left-sided hydronephrosis and hydroureter has increased. There is a 6 mm calculus at the left UVJ. This has descended when compared to prior examination. There has been an interval increase in perinephric and periureteral stranding which may be reactive but should be correlated with any concern for infection. 2. Portions of the internal contents of the urinary bladder measure greater than water density. Components of blood or infection are possible. 3. Cystic structure and nonobstructive right renal calculus again noted in the right kidney. Other findings/details as above. Dictated and Authenticated by: Maryjane Aguilera MD. Ordering:ADELAIDA Lacy MD
[2021-10-23 23:30] VITALS: BP 137/90; PULSE 75; RESP 18; TEMP 36.4; O2SAT 97
[2021-10-24] VITALS (12 sets, daily range): BP systolic 129–165; BP diastolic 82–107; PULSE 68–84; RESP 10–21; TEMP 36.3–36.8; O2SAT 92–97; BMI 35.2
[2021-10-24] MEDS: Lactated Ringers 1,000 ML 150 ML IV ×2 (00:05→08:35)
[2021-10-24] MEDS: Nicotine 21 MG/24 HR PATCH TD ×2 (00:40→21:51)
[2021-10-24] MEDS: Normal Saline 500 ML 50 ML IV (00:40)
[2021-10-24] MEDS: Tamsulosin 0.4 MG CAPCR 0.8 MG PO (00:41)
[2021-10-24] MEDS: ACETAMINOPHEN 1,000 MG/100 ML BTL 400 MG IVPB (00:41)
[2021-10-24] MEDS: Normal Saline Flush 10 ML SYR IVP ×9 (00:42→23:46)
[2021-10-24] MEDS: HYDROmorphone 2 MG/ML SYR 1 MG IVP ×4 (01:06→11:10)
--- NOTE | 2021-10-24 09:47 | W.PM.PROGNOT ---
Date of Service Date of service: 10/24/21 Time of Service: 11:00 Assessment and Plan Assessment and plan (1) Left ureteral stone: Status: Acute Assessment and plan: He remains symptomatic and will go to the OR this afternoon with Dr Duran for cystoscopy/stent placement. Pain medication NPO Discussed with Dr Feldman. Subjective Subjective Patient reports: still having pain Interval history since last seen: Edison was having a lot of pain this morning, he was given dilaudid and toradol. He was seen by Dr Duran and taken to the OR for a ureteral stent. See Dr Duran's note. He is doing well, however does not have a ride home; since he had anesthesia we will keep him overnight for safety. Exam Narrative Exam Narrative: Edison is awaiting a urology assessment with plan of going to the OR for a uretheral stent. He is uncomforablt but tolerating the pain and has PRN pain medication. Const Other: Const: Well-nourished, Well-developed, appearing stated age Eyes: PERRL, no conjunctival injection, and symmetrical lids. ENT: Atraumatic external nose and ears. Moist MM. Neck: Symmetric, trachea midline, No thyromegaly CVS: RRR +S1/S2, No murmurs or gallops. Peripheral pulses 2+ and equal in all extremities.? Brisk capillary refill in all extremities. RESP: Unlabored respiratory effort.? Lungs clear bilaterally GI: Soft, Nontender/Nondistended, No hepatosplenomegaly.? No guarding or rebound. :Painful MSK: Normocephalic/Atraumatic, Extremities w/o deformity or ttp No cyanosis or clubbing, Normal movement of all extremities.? No edema.No calf tenderness Skin: Warm, Dry. No rashes or lesions. Neuro: accounting auditor II-XII grossly intact. Sensation grossly intact, no focal neurologic deficits. Psych: (AAO) x3. Appropriate mood and affect Objective Last Vital Signs Temp 36.4 C L 10/24/21 07:58 Pulse 78 10/24/21 07:58 Resp 19 10/24/21 07:58 BP 129/87 10/24/21 07:58 Pulse Ox 96 10/24/21 07:58 Laboratory Results - last 24 hr 10/23/21 10/23/21 10/23/21 21:05 21:05 21:05 WBC 14.86 H RBC 4.95 Hgb 15.1 Hct 46.0 MCV 93 MCH 30.5 MCHC 32.8 RDW 14.3 H Plt Count 221 MPV 11.6 H Immature Gran % 0.4 Neutrophils % 72.5 Lymphocytes % 16.4 Monocytes % 9.9 Eosinophils % 0.5 Basophils % 0.3 Nucleated RBC % 0.0 Absolute Neutrophils 10.77 H Absolute Lymphocytes 2.44 Absolute Monocytes 1.47 H Absolute Eosinophils 0.07 Absolute Basophils 0.04 Sodium 144 Potassium 4.4 Chloride 110 H Carbon Dioxide 24.2 Anion Gap 9.8 BUN 19 H Creatinine 1.5 H Estimated GFR/1.73 m2 49.15 Glucose 115 H Calcium 8.5 Magnesium 1.9 Total Bilirubin 0.4 AST 14 L ALT 21 Alkaline Phosphatase 56 Total Protein 6.8 Albumin 3.3 L Lipase 74 Urine Color Urine Clarity Urine pH Ur Specific [place] Urine Protein Urine Ketones Urine Blood Urine Nitrite Urine Bilirubin Urine Urobilinogen Ur Leukocyte Esterase Urine RBC Urine WBC Ur Epithelial Cells Urine Crystals Urine Bacteria Urine Casts Urine Mucus Urine Other Ur Culture Indicated? Urine Glucose COVID-19 Source Nasal/Nares SARS-CoV-2 (PCR) Negative 10/23/21 21:45 WBC RBC Hgb Hct MCV MCH MCHC RDW Plt Count MPV Immature Gran % Neutrophils % Lymphocytes % Monocytes % Eosinophils % Basophils % Nucleated RBC % Absolute Neutrophils Absolute Lymphocytes Absolute Monocytes Absolute Eosinophils Absolute Basophils Sodium Potassium Chloride Carbon Dioxide Anion Gap BUN Creatinine Estimated GFR/1.73 m2 Glucose Calcium Magnesium Total Bilirubin AST ALT Alkaline Phosphatase Total Protein Albumin Lipase Urine Color Yellow Urine Clarity Clear Urine pH 6.5 Ur Specific [place] >= 1.030 H Urine Protein 30 H Urine Ketones Trace H Urine Blood Large H Urine Nitrite Negative Urine Bilirubin Negative Urine Urobilinogen 1.0 H Ur Leukocyte Esterase Negative Urine RBC 20-50 H Urine WBC 10-20 H Ur Epithelial Cells Negative Urine Crystals Negative Urine Bacteria Negative Urine Casts Negative Urine Mucus Negative Urine Other Negative Ur Culture Indicated? Yes Urine Glucose Negative COVID-19 Source SARS-CoV-2 (PCR) Reviewed Pertinent PMH: Yes
[2021-10-24] MEDS: Ketorolac 30 MG/ML VIAL IVP ×3 (12:25→23:45)
--- NOTE | 2021-10-24 12:53 | UCONE_ITS ---
Date of service: 10/24/21 Time of Service: 12:53 Assessment and Plan Assessment and plan (1) Left ureteral stone: Status: Acute Assessment and plan: He remains symptomatic from his stone and he would like to move forward with surgical treatment. We will plan on coming to the operating room for cysto scopy, left retrograde pyelogram, left ureteroscopy, possible holmium laser lithotripsy and possible stent placement. We discussed the possibility that we would not be able to access the stone today in which case a stent would be placed and we would make arrangements for a return to the operating room in a week or so for a staged procedure. We discussed potential side effects including bleeding, infection and ureteral injuries. History of Present Illness History of Present Illness Chief Complaint: Left ureteral stone Narrative: This is a 51-year-old gentleman who presented to the emergency department late last week with a left sided abdominal pain. He was identified as having a left proximal ureteral stone. He was discharged with oral medications but he return ed with persistent pain, nausea and vomiting. The pain had migrated to the left lower quadrant and had radiation to the left testis. A repeat CT showed that the stone was at the ureterovesical junction. He has had persistent symptoms and has not been able to pass his stone. He has no previous stone history. He has no metabolic abnormality such as gout or hyperparathyroid disease. He has seen some gross hematuria just in the past few days. He has some frequency and urgency. He is not having fevers or chills Review of Systems Narrative: No fevers or chills No vision change or dysphasia No diabetes or thyroid No shortness of breath, cough or hemoptysis No chest pain or palpitations No hepatitis, ulcers, jaundice No seizures, strokes or peripheral neuropathy No bleeding disorders or anemia No gout PFSH All Active Problems (Updated 10/24/21 @ 12:57 by Jude Duran MD) Left ureteral stone (Acute) Kidney stone (Chronic) Social History Smoking/Tobacco Use Status: Current every day Tobacco Type: cigarettes Smoking risk assessment performed?: Yes Alcohol Intake: never Drug use: Never Substance use type: does not use Do you feel safe at home: Yes Do you feel safe in your relationship?: Yes Exam Narrative Exam Narrative: He appears uncomfortable but does not appear septic or toxic His vital signs are documented elsewhere His chest wall motion is normal. He is not short of breath at rest. His abdomen is soft with no peritoneal signs He is awake and alert I reviewed his CT scan on the PACS system. The previously identified left proximal ureteral stone is now at the left ureterovesical junction. Results Last Vital Signs Temp 36.4 C L 10/24/21 07:58 Pulse 78 10/24/21 07:58 Resp 19 10/24/21 07:58 BP 129/87 10/24/21 07:58 Pulse Ox 96 10/24/21 07:58 Labs Result diagrams: 10/23/21 21:05 10/23/21 21:05 Labs: Laboratory Results - last 24 hr 10/23/21 10/23/21 10/23/21 21:05 21:05 21:05 WBC 14.86 H RBC 4.95 Hgb 15.1 Hct 46.0 MCV 93 MCH 30.5 MCHC 32.8 RDW 14.3 H Plt Count 221 MPV 11.6 H Immature Gran % 0.4 Neutrophils % 72.5 Lymphocytes % 16.4 Monocytes % 9.9 Eosinophils % 0.5 Basophils % 0.3 Nucleated RBC % 0.0 Absolute Neutrophils 10.77 H Absolute Lymphocytes 2.44 Absolute Monocytes 1.47 H Absolute Eosinophils 0.07 Absolute Basophils 0.04 Sodium 144 Potassium 4.4 Chloride 110 H Carbon Dioxide 24.2 Anion Gap 9.8 BUN 19 H Creatinine 1.5 H Estimated GFR/1.73 m2 49.15 Glucose 115 H Calcium 8.5 Magnesium 1.9 Total Bilirubin 0.4 AST 14 L ALT 21 Alkaline Phosphatase 56 Total Protein 6.8 Albumin 3.3 L Lipase 74 Urine Color Urine Clarity Urine pH Ur Specific [place] Urine Protein Urine Ketones Urine Blood Urine Nitrite Urine Bilirubin Urine Urobilinogen Ur Leukocyte Esterase Urine RBC Urine WBC Ur Epithelial Cells Urine Crystals Urine Bacteria Urine Casts Urine Mucus Urine Other Ur Culture Indicated? Urine Glucose COVID-19 Source Nasal/Nares SARS-CoV-2 (PCR) Negative 10/23/21 21:45 WBC RBC Hgb Hct MCV MCH MCHC RDW Plt Count MPV Immature Gran % Neutrophils % Lymphocytes % Monocytes % Eosinophils % Basophils % Nucleated RBC % Absolute Neutrophils Absolute Lymphocytes Absolute Monocytes Absolute Eosinophils Absolute Basophils Sodium Potassium Chloride Carbon Dioxide Anion Gap BUN Creatinine Estimated GFR/1.73 m2 Glucose Calcium Magnesium Total Bilirubin AST ALT Alkaline Phosphatase Total Protein Albumin Lipase Urine Color Yellow Urine Clarity Clear Urine pH 6.5 Ur Specific [place] >= 1.030 H Urine Protein 30 H Urine Ketones Trace H Urine Blood Large H Urine Nitrite Negative Urine Bilirubin Negative Urine Urobilinogen 1.0 H Ur Leukocyte Esterase Negative Urine RBC 20-50 H Urine WBC 10-20 H Ur Epithelial Cells Negative Urine Crystals Negative Urine Bacteria Negative Urine Casts Negative Urine Mucus Negative Urine Other Negative Ur Culture Indicated? Yes Urine Glucose Negative COVID-19 Source SARS-CoV-2 (PCR)
--- NOTE | 2021-10-24 12:57 | ANES.PREOP_ITS ---
General Info Date of Service Date Performed: 10/24/21 Height: 5 ft 7 in Weight: 102.058 kg Body Mass Index (BMI): 35.2 Surgical Procedure: Operation Date: 10/24/21 13:10 Proposed Procedure Side Surgeon p Cystoscopy/Laser/Retrograde/Ureteroscopy/Stone Removal Left Jude Duran MD Meds Allergies and Home Medications Allergies Allergy/AdvReac Type Severity Reaction Status Date / Time No Known Allergies Allergy Unverified 10/23/21 21:28 Home Medication Medication Instructions Recorded ondansetron 4 mg disintegrating 4 mg PO Q8H PRN nausea and 10/21/21 tablet vomiting #30 tabs tamsulosin 0.4 mg capsule (Flomax) 0.4 mg PO DAILY #14 caps 10/21/21 oxycodone 5 mg tablet 5 mg PO Q6H PRN Pain, Severe 10/23/21 Current Visit Medications: Current Medications Generic Name Dose Route Start Last Admin Trade Name Freq PRN Reason Stop Dose Admin Dimethicone/Zinc Oxide 0 gm 10/23/21 22:14 Magan Protect Cream 142 Gm Tube TP PRN PRN Hydromorphone HCl 2 mg 10/24/21 10:49 Hydromorphone 2 Mg/Ml Syr IVP Q3H PRN PRN Ringer's Solution 1,000 mls @ 150 mls/hr 10/23/21 22:15 10/24/21 08:35 IV 150 mls/hr INFUSION BIJU Administration Acetaminophen 1,000 mg in 100 mls @ 400 mls/hr 10/23/21 22:17 10/24/21 01:00 Ofirmev IVPB Infused Q8H PRN PRN Infusion Sodium Chloride 500 mls @ 500 mls/hr 10/24/21 00:56 10/24/21 05:16 Saline 1000ml Bag IV 0 mls/hr PRN PRN Infusion IV Miscellaneous Supplies 1 each 10/23/21 21:00 Iv Access IV DIRECTED BIJU Ketorolac Tromethamine 30 mg 10/24/21 12:00 10/24/21 12:25 Ketorolac 30 Mg/Ml Vial IVP 10/29/21 11:59 30 mg Q6H BIJU Administration Nicotine 21 mg 10/23/21 22:14 10/24/21 00:40 Nicotine 21 Mg/24 Hr Patch TD 21 mg DAILY PRN PRN Administration Ondansetron HCl 4 mg 10/23/21 22:14 Ondansetron 4 Mg/2 Ml Vial IVP Q4H PRN PRN Sodium Chloride 0 ml 10/23/21 20:49 10/24/21 12:25 Normal Saline Flush 10 Ml Syr IVP 10 ml PRN PRN Administration Zolpidem Tartrate 5 mg 10/23/21 22:17 Zolpidem 5 Mg Tab PO HS PRN MAY REPEAT X1 PRN PFSH Active Problems Active Problems: Problem Status Onset Code Left ureteral stone N20.1 Kidney stone N20.0 Tobacco Smoking/Tobacco Use Status: Current every day Tobacco Type: cigarettes Smoking cigarettes per day: 10 Alcohol Alcohol Intake: never Substance Use Substance use: Never Substance use type: does not use Vital Signs and Lab Results Vital Signs Most Recent Vital Signs in EMR: Most Recent Vital Signs Temp Pulse Resp BP Pulse Ox 36.4 C L 78 19 129/87 96 10/24/21 07:58 10/24/21 07:58 10/24/21 07:58 10/24/21 07:58 10/24/21 07:58 Lab Results Result Diagrams: 10/23/21 21:05 10/23/21 21:05 Blood Type / Crossmatch: No Data to Display Complete Blood Count: White Blood Count 14.86 10^3/uL (4.4-10.8) H 10/23/21 21:05 Red Blood Count 4.95 10^6/uL (4.36-5.78) 10/23/21 21:05 Hemoglobin 15.1 g/dL (13.5-17.5) 10/23/21 21:05 Hematocrit 46.0 % (40.0-50.0) 10/23/21 21:05 Platelet Count 221 10^3/uL (130-400) 10/23/21 21:05 Complete Metabolic Panel: Sodium Level 144 mmol/L (136-145) 10/23/21 21:05 Potassium Level 4.4 mmol/L (3.5-5.1) 10/23/21 21:05 Chloride Level 110 mmol/L (98-107) H 10/23/21 21:05 Carbon Dioxide Level 24.2 mmol/L (21.0-32.0) 10/23/21 21:05 Blood Urea Nitrogen 19 mg/dL (7-18) H 10/23/21 21:05 Creatinine 1.5 mg/dL (0.70-1.30) H 10/23/21 21:05 Estimated GFR/1.73 m2 49.15 (mL/min/1.73m2) 10/23/21 21:05 Magnesium Level 1.9 mg/dL (1.8-2.4) 10/23/21 21:05 Calcium Level 8.5 mg/dL (8.5-10.1) 10/23/21 21:05 Albumin 3.3 g/dL (3.4-5.0) L 10/23/21 21:05 Glucose Level 115 mg/dL (74-106) H 10/23/21 21:05 Liver Function Panel: Alanine Aminotransferase (ALT/SGPT) 21 U/L (16-63) 10/23/21 21: 05 Aspartate Amino Transf (AST/SGOT) 14 U/L (15-37) L 10/23/21 21: 05 Coagulation Panel: No Data to Display Cardiac Panel: No Data to Display Arterial Blood Gas: No Data to Display Venous Blood Gas: No Data to Display Pancreas Panel: Lipase 74 U/L (73-393) 10/23/21 21:05 Thyroid Panel: No Data to Display Infectious Disease: Coronavirus (COVID-19)(PCR) Negative (Negative) 10/23/21 21:05 Coronavirus 2019 Source Nasal/Nares 10/23/21 21:05 Blood Cultures: No Data to Display Toxicology Panel: No Data to Display Anesthesia Assessment and Plan Anesthesia History Personal History: No History of Anesthesia Complications Family History: No Family History of Anesthesia Complications Exercise Tolerance Exercise Tolerance: Metabolic Equivalents>4 Cardiac & Pulmonary Exam Cardiac Exam: Normal S1/S2 Heart Sounds Pulmonary Exam: Clear Bilateral Breath Sounds Implantable Cardiac Device Does patient have a Pacemaker or an ICD?: No Airway Exam Known Difficult Airway: No Mallampati Class: 2 Mouth Opening: Normal (> 3cm) Thyromental Distance: Greater than 3 cm Neck Range of Motion: Full ROM Neck Circumference: Thick Teeth Condition: Normal Dentition ASA Classification ASA Score: ASA 2 Emergency Case?: No NPO Status NPO Status: NPO Clears >2 hours, Solids >8 hours Anesthesia Plan Resuscitation Status: Full Code Anesthesia Technique: General Anesthesia Airway Planned: LMA Monitors Used: Standard Monitors Preoperative Comments:: 51 yo male inpt with kidney stones. Sig PMHx: smoker, denies major.
[2021-10-24] MEDS: HYDROmorphone 2 MG/ML SYR IVP ×3 (13:22→21:51)
[2021-10-24] MEDS: Lactated Ringers 1,000 ML 30 ML IV (13:53)
[2021-10-24] MEDS: Lidocaine 2% Jelly 6 ML SYR (14:06)
[2021-10-24] MEDS: Omnipaque 300 MG/ML 50 ML BTL (14:24)
--- NOTE | 2021-10-24 14:32 | DI.RAD_ITS ---
Exam(s) XR RETROGRADE IN OR EXAM: XR RETROGRADE IN OR CLINICAL HISTORY: LEFT URETERAL STONE. TECHNIQUE: 2D digital imaging was performed. COMPARISON: No exams were available for comparison FINDINGS: Fluoroscopy provided during retrograde pyelogram study by the urologist Procedure report for details. Total cumulative dose 18.790mGy IMPRESSION: DATA REPOSITORY: RADIATION DOSE DELIVERED:
--- NOTE | 2021-10-24 14:38 | W.PM.OP ---
Date of service: 10/24/21 Time of Service: 14:38 Operative Note Operative Note DATE OF PROCEDURE: 10/24/21 PRE-OP DIAGNOSIS: Left ureteral stone POST-OP DIAGNOSIS: same PROCEDURE: cystoscopy, left retrograde pyelogram, left ureteral dilation, left ureteroscopy with holmium laser lithotripsy, extraction of stone fragments, insert left ureteral stent SURGEON: Jude Duran ANESTHESIA TYPE: General LMA/ETT Refer to Anesthesia Record ESTIMATED BLOOD LOSS: 10 PATHOLOGY: other (stone for chemical analysis) COMPLICATIONS: None Patient was transported to: PACU Patient's condition: stable Implants: 4.8 Palauan by 22 to 30 cm left ureteral stent Indications: This is a 51 year old gentleman who was orriginally seen in the ER with a left proximal ureteral stone. He was treated conservatively but returned to the ED with persistent pain. His stone migrated to the distal ureter but is still causing symptoms and has not yet passed. He presents for stone manipulation. Findings: Left distal ureteral stone Procedure Description: The patient was brought to the he was given preoperative IV antibiotics. After successful induction of general anesthesia, he was placed in the dorsal lithotomy position. His genitalia was prepped and draped. 2% Xylocaine jelly was instilled into the urethra. A 22 Palauan rigid cystoscope was passed through the urethra into the bladder. The urethra and bladder were inspected with a 30 degree lens. The pendulous, bulbar and membranous urethra appeared normal with no strictures. The prostatic urethra showed some mild lateral lobe enlargement but no significant median lobe. The bladder neck was entered and the bladder mucosa was inspected. The right ureteral orifice appeared normal, but the left orifice was markedly edematous. I was unable to engage the orifice with this 5 Palauan access catheter, but I was able to maneuver a Glidewire up the ureter. I then used a UroMax balloon to dilate the distal ureter. Once the ureter was dilated, I was able to pass a semirigid ureteroscope through the urethra into the bladder and engage the scope into the left ureter. I was able to visualize the stone in the left distal ureter. I was initially unable to basket the stone, so we used a 365 ?m holmium laser fiber to fragment the stone. We used a power setting of 800 and a rate of 8. Once the stone was fragmented, I was able to grasp of the fragments using a Emma stone basket. The largest of the stone fragments was sent to pathology for chemical analysis. Because of the trauma associated with the dilation, we elected to place a ureteral stent. We chose a 4.8 Palauan variable length stent and advanced it over the wire. The proximal end was curled in the kidney and the distal end was curled within the bladder. The positioning of the stent was confirmed both fluoroscopically and cystoscopically. We left the safety string in place and brought it out through the patient's urethra. We taped the safety string onto the dorsum of the penis using Steri-Strips. The patient tolerated this procedure well with no complications.
--- NOTE | 2021-10-24 14:52 | W.ANESPOSTOP ---
Postoperative Evaluation Date, Time and Location Date Performed: 10/24/21 Time Performed: 15:00 Patient Location: PACU Vital Signs Most Recent Imported Vital Signs: Most Recent Vital Signs Temp Pulse Resp BP Pulse Ox 36.4 C L 78 19 129/87 96 10/24/21 07:58 10/24/21 07:58 10/24/21 07:58 10/24/21 07:58 10/24/21 07:58 Pain Score Most Recent Pain Score: Most Recent Pain Score Pain Level 7 10/24/21 13:22 Assessment Mental Status: Awake (Alert & Oriented to Patient Baseline) Airway and Respiratory Function: Patent airway with normal (patient baseline) respiratory exam Cardiovascular Function: Hemodynamically Stable Hydration Status: Adequately Hydrated Nausea & Vomiting: No Nausea or Vomiting Pain: Pain is tolerable per patient Peripheral Nerve Block: Patient did not receive a nerve block
[2021-10-24] MEDS: HYDROmorphone 2 MG/ML VIAL IVP (15:16)
--- NOTE | 2021-10-24 16:18 | PDOC.CMIN ---
- If Service Date Differs Date of service: 10/24/21 Time of Service: 16:18 Care Management Initial Assess REASON FOR HOSPITALIZATION:: Kidney Stone PAST MEDICAL HISTORY/PAST SURGICAL HISTORY:: Kidney Stone PREVIOUS FUNCTIONAL STATUS/SOCIAL/FAMILY SUPPORTS:: Resides in [place], employed at [employer]. CURRENT FUNCTIONAL STATUS:: Out of room during CM visit attempt. Has patient been provided with info about the portal/API?: No Did the patient sign up for the portal?: No CODE STATUS:: Full Code INSURANCE COVERAGE / FINANCIAL ISSUES:: [facility] CURRENT HOME/COMMUNITY SERVICES/EQUIPMENT:: None, currently. PRIMARY CARE PHYSICIAN:: No local. POTENTIAL DISCHARGE NEEDS:: Urology consult, follow up appointments. PATIENT/FAMILY EDUCATION NEEDS:: Review discharge instructions, discuss Ask Me Three. ANTICIPATED BARRIERS TO DISCHARGE:: None identified. TRANSPORTATION:: Via private vehicle with family/friend. PLAN:: Per Urologist: discharge home with ureteral stent in place. Office f/u in 3 to 7 days to have the stent removed. Recommendation to remain off work for the remainder of this week to be able to return next week with no restrictions. Oral Toradol prescribed for any discomfort at home. Longer-term, he should have a follow-up appointment in 6 to 8 weeks so that we can review a renal ultrasound to make sure no ureteral strictures developed from his procedure. We can also review his stone chemical composition at that time. Anticipate Edison will return home with outpatient follow up as above. He will transport via private vehicle with family.
--- NOTE | 2021-10-24 19:33 | W.PM.DS.N ---
Date of service: 10/25/21 Time of Service: 09:00 DS: Diagnosis Discharge Diagnosis (1) Left ureteral stone: Status: Acute Asessment and Plan: Cystoscopy by Dr Duran; stent placed Discharge Plan Disposition Patient Disposition: HOME Condition: Stable Discharge Details Reason For Visit: Kidney Stone Admit Date/Time: 10/23/21 22:14 Admit Provider: Santos Milton Attending Provider: Santos Milton Primary Care Provider: [facility] Hospital Course: Edison is a 51 year old male patient that presented to the [facility] Emergency Department 10/21/2021 with the chief complaint of flank pain; he was found to have a left 5 mm stone in the mid left ureter. He was sent home with the hopes of it passing. He returned 10/23/2021 with more pain. He was admitted to the med surg unit and went to the operating room with Dr Duran for cystoscopy and stent placement. Tolerated the procedure well. He stayed over night as he did not have someone that could come and get him. We did not want him to drive post anesthesia. Discussed with Dr Feldman and Dr Duran Time spent on direct patient care and documentation 45 min Home Meds and New Rx's Prescriptions: No Action oxycodone 5 mg tablet 5 mg PO Q6H PRN (Reason: Pain, Severe) ondansetron 4 mg tablet,disintegrating 4 mg PO Q8H PRN (Reason: nausea and vomiting) Qty: 30 0RF tamsulosin [Flomax] 0.4 mg capsule 0.4 mg PO DAILY Qty: 14 0RF Rx Instructions: take once daily for 14 days of until you pass kidney stone Discharge Instructions Instructions: Kidney Stones (DC) Additional Instructions: Further instructions from Dr Duran Referrals: Jude Duran MD [ [facility] STAFF PHYSICIAN] - (Follow up in 1-2 weeks ) Activity:: Activity as Tolerated Equipment/Supplies:: No Equipment Needed Diet:: As Tolerated Discharge Orders Discharge Orders: Discharge Order (Routine); Ordered 10/25/21 Ordered By: Lilly Pina DS: Summary Time Spent with Patient providing and/or coordinating discharge services: Less than 30 minutes Status at Discharge Functional status at discharge: independent ambulation Overall status at discharge: patient is back to baseline Mental Status: mental status grossly normal Speech and Movement: speech and movement normal Mood: congruent mood Affect: normal affect Exam Psych Mental Status: mental status grossly normal Speech and Movement: speech and movement normal Mood: congruent mood Affect: normal affect DS: Data Vitals/I&O Vitals and I&O: Vital Signs Temperature 36.6 C 10/24/21 17:31 Temperature Source Tympanic 10/24/21 17:31 Pulse 75 10/24/21 17:31 Pulse Rhythm Regular 10/24/21 17:00 Respiratory Rate 18 10/24/21 17:31 Respiratory Effort Non-Labored 10/24/21 17:00 Respiratory Depth Normal 10/24/21 17:00 Respiratory Pattern Normal 10/24/21 17:00 Blood Pressure 132/82 10/24/21 17:31 Pulse Oximetry 95 10/24/21 17:31 Respiratory End-tidal CO2 37 10/24/21 15:41 Oxygen Delivery Method Room Air 10/24/21 17:31 Oxygen Flow Rate 0 10/24/21 17:31 Pain Level 7 10/24/21 18:46 Intake & Output 10/23/21 10/24/21 10/24/21 23:59 11:59 23:59 Intake Total 1330 / 2900 1570 / 2900 Output Total 800 / 1200 400 / 1200 Balance 530 / 1700 1170 / 1700 Weight 102.058 kg 102.058 kg Intake: IV 1330 / 2780 1450 / 2780 Oral 120 / 120 Output: Urine 800 / 1200 400 / 1200 Other: Urine Color Dark Kassy Dark Red Urine Appearance Clear Clear Urine Odor None Strain Urine Result Positive-Gravel Seen Emesis Description None Voiding Methods Toilet Data Completed and Pending Labs on day of discharge: Labs from last 24 hours 10/24/21 10/23/21 10/23/21 14:31 21:45 21:05 WBC 14.86 H RBC 4.95 Hgb 15.1 Hct 46.0 MCV 93 MCH 30.5 MCHC 32.8 RDW 14.3 H Plt Count 221 MPV 11.6 H Immature Gran % 0.4 Neutrophils % 72.5 Lymphocytes % 16.4 Monocytes % 9.9 Eosinophils % 0.5 Basophils % 0.3 Nucleated RBC % 0.0 Absolute Neutrophils 10.77 H Absolute Lymphocytes 2.44 Absolute Monocytes 1.47 H Absolute Eosinophils 0.07 Absolute Basophils 0.04 Sodium Potassium Chloride Carbon Dioxide Anion Gap BUN Creatinine Estimated GFR/1.73 m2 Glucose Calcium Magnesium Total Bilirubin AST ALT Alkaline Phosphatase Total Protein Albumin Lipase Urine Color Yellow Urine Clarity Clear Urine pH 6.5 Ur Specific Chazy >= 1.030 H Urine Protein 30 H Urine Ketones Trace H Urine Blood Large H Urine Nitrite Negative Urine Bilirubin Negative Urine Urobilinogen 1.0 H Ur Leukocyte Esterase Negative Urine RBC 20-50 H Urine WBC 10-20 H Ur Epithelial Cells Negative Urine Crystals Negative Urine Bacteria Negative Urine Casts Negative Urine Mucus Negative Urine Other Negative Ur Culture Indicated? Yes Urine Glucose Negative Stone Source Pending Stone Comment Pending Kidney Stone Analysis Pending COVID-19 Source SARS-CoV-2 (PCR) 10/23/21 10/23/21 21:05 21:05 WBC RBC Hgb Hct MCV MCH MCHC RDW Plt Count MPV Immature Gran % Neutrophils % Lymphocytes % Monocytes % Eosinophils % Basophils % Nucleated RBC % Absolute Neutrophils Absolute Lymphocytes Absolute Monocytes Absolute Eosinophils Absolute Basophils Sodium 144 Potassium 4.4 Chloride 110 H Carbon Dioxide 24.2 Anion Gap 9.8 BUN 19 H Creatinine 1.5 H Estimated GFR/1.73 m2 49.15 Glucose 115 H Calcium 8.5 Magnesium 1.9 Total Bilirubin 0.4 AST 14 L ALT 21 Alkaline Phosphatase 56 Total Protein 6.8 Albumin 3.3 L Lipase 74 Urine Color Urine Clarity Urine pH Ur Specific Chazy Urine Protein Urine Ketones Urine Blood Urine Nitrite Urine Bilirubin Urine Urobilinogen Ur Leukocyte Esterase Urine RBC Urine WBC Ur Epithelial Cells Urine Crystals Urine Bacteria Urine Casts Urine Mucus Urine Other Ur Culture Indicated? Urine Glucose Stone Source Stone Comment Kidney Stone Analysis COVID-19 Source Nasal/Nares SARS-CoV-2 (PCR) Negative 10/23/21 21:45 Urine - Reflex from Urine Culture - Pending Preliminary micro results at discharge 10/23/21 21:45 Urine Culture - Pending Urine - Reflex from [facility] All Active Problems (Updated 10/24/21 @ 12:57 by Jude Duran MD) Left ureteral stone (Acute) Kidney stone (Chronic) Social History Smoking/Tobacco Use Status: Current every day Tobacco Type: cigarettes Smoking risk assessment performed?: Yes Alcohol Intake: never Drug use: Never Substance use type: does not use Do you feel safe at home: Yes Do you feel safe in your relationship?: Yes
[2021-10-25] MEDS: Normal Saline Flush 10 ML SYR IVP ×3 (02:42→10:00)
[2021-10-25] MEDS: HYDROmorphone 2 MG/ML SYR IVP (02:42)
[2021-10-25] MEDS: Ketorolac 30 MG/ML VIAL IVP (05:35)
[2021-10-25 07:38] VITALS: BP 160/108; PULSE 77; RESP 14; TEMP 36.9; O2SAT 96
--- NOTE | 2021-10-25 07:48 | W.PM.PROGNOT ---
Date of Service Date of service: 10/25/21 Time of Service: 07:48 Assessment and Plan Assessment and plan (1) Left ureteral stone: Status: Acute Assessment and plan: We will plan on discharging him home with his ureteral stent in place. He will return to the office in 3 to 7 days to have the stent removed. I recommended that he remain off work for the remainder of this week to be able to return next week with no restrictions. I have sent in a prescription for oral Toradol to use for any discomfort at home. Longer-term, he should have a follow-up appointment in 6 to 8 weeks so that we can review a renal ultrasound to make sure no ureteral strictures developed from his procedure. We can also review his stone chemical composition at that time. Subjective Subjective Interval history since last seen: He has had discomfort for years and has seen blood in the urine. He passed a few small clots. He has been able to tolerate oral medications and nutrition. He has had good pain control when he receives IV ketorolac. Exam Narrative Exam Narrative: He does appear septic or toxic His abdomen is soft with no guarding or rebound tenderness He is awake and alert Objective Last Vital Signs Temp 36.9 C 10/25/21 07:38 Pulse 77 10/25/21 07:38 Resp 14 10/25/21 07:38 BP 160/108 H 10/25/21 07:38 Pulse Ox 96 10/25/21 07:38
[2021-10-25] MEDS: ACETAMINOPHEN 1,000 MG/100 ML BTL 400 MG IVPB (09:59)
--- NOTE | 2021-10-25 10:05 | PDOC.CMDIS ---
- If Service Date Differs Date of service: 10/25/21 Time of Service: 10:05 LACE Index Scoring Tool - Questions: Length of Stay (in days): 2 Acuity (Admit via E.D.?): Yes E.D. Visits: 3 - Answers: Total Score: 8 Risk of Readmission: Low Risk Care Management Discharge Reason for Hospitalization: Kidney Stone Discharge Plan: Per Urologist: discharge home with ureteral stent in place. Office f/u in 3 to 7 days to have the stent removed. Recommendation to remain off work for the remainder of this week to be able to return next week with no restrictions. Oral Toradol prescribed for any discomfort at home. Longer-term, he should have a follow-up appointment in 6 to 8 weeks so that we can review a renal ultrasound to make sure no ureteral strictures developed from his procedure. We can also review his stone chemical composition at that time. Anticipate Edison will return home with outpatient follow up as above. He will transport via private vehicle with family. Patient/Family Education Needs: Review disharge instructions, discuss Ask Me Three.
[2021-11-01 14:30] LABS: Source: Left Ureter
== END 2021-10-25 11:57 | disposition home or self-care (01) ==
LOC: ER 21:46 → MS 23:18
PROVIDERS: Urology; Admitting Provider General Practice; Emergency Provider Emergency Medicine; Visit Provider General Practice
PROC: 0TC78ZZ Extirpation of Matter from Left Ureter, Via Natural or Artificial Opening Endoscopic (ICD-10-PCS; principal; 2021-10-24 13:00)
DX: N13.2 Hydronephrosis with renal and ureteral calculous obstruction (principal); F17.210 Nicotine dependence, cigarettes, uncomplicated; Z20.822 Contact with and (suspected) exposure to COVID-19; N28.1 Cyst of kidney, acquired; Z79.899 Other long term (current) drug therapy; R31.0 Gross hematuria
CPT/HCPCS: 52356; 80053; 83690; 87635; 96361; 96365; 96374; 96375; 96376; 99284; 99285; 74176; 74420; 81003; 81015; 82365; 83735; 85025; 87086; 99217; 99219; 99225; G0378; J0131; J0690; J1100; J1170; J1885; J2405; J2704; Q9967